=== PATIENT | male | born 1980 | race Two or more races ===

== ENCOUNTER 2024-02-13 16:10 | Inpatient (IN) | payer OTHER ==
[~2024-02-13] VITALS: Ht 185.4 cm; Wt 140.9 kg
[2024-02-13 16:19] VITALS: TEMP 98.7
[2024-02-13] MEDS: CloNIDine HCL 0.1 MG TABLET PO ONE (17:36)
[2024-02-13 17:40] LABS: BASOPHILS % (AUTO) 0.9 % (0.0-2.0); HEMATOCRIT 42.5 % (41-53); HEMOGLOBIN 13.6 g/dL (13.5-17.5); LYMPHOCYTES # (AUTO) 3.5 K/uL (1.0-4.8); LYMPHOCYTES % (AUTO) 32.1 % (22.0-44.0); MEAN CORPUSCULAR HEMOGLOBIN 28.9 pg (26.0-34.0); MEAN CORPUSCULAR HGB CONC 32.1 G/dL (31.0-37.0); MEAN CORPUSCULAR VOLUME 90 fL (80-100); NEUTROPHILS # (AUTO) 5.5 K/uL (1.8-7.7); PLATELET COUNT (AUTO) 270 K/uL (150-450); RED BLOOD CELL COUNT(AUTO) 4.71 MIL/uL (4.50-5.90); WHITE BLOOD COUNT (AUTO) 10.8 K/uL (4.5-11.0)
[2024-02-13] MEDS: AmLODIPine BESYLATE 10 MG TABLET PO ONE (17:48)
[2024-02-13 17:50] LABS: ANION GAP 12 mmol/L (8-16); CALCIUM, TOTAL 8.6 mg/dL (8.8-10.5); CARBON DIOXIDE 25 mmol/L (22-29); CHLORIDE 103 mmol/L (98-107); CREATININE 1.03 mg/dL (0.60-1.30); GLOMERULAR FILTR. RATE CALC > 60 mL/min (>60); GLUCOSE,RANDOM 121 mg/dL (70-110); POTASSIUM 3.5 mmol/L (3.5-5.1); SODIUM SERUM 140 mmol/L (136-145); UREA NITROGEN, BLOOD 14 mg/dL (7-18)
[2024-02-13 17:59] LABS: TROPONIN I-HIGH SENSITIVITY 27 ng/L (<76)
[2024-02-13] MEDS ORDERED: 0.9% SODIUM CHLORIDE 10 ML SYRINGE IVP PRN (19:00)
[2024-02-13 19:27] LABS: PROTHROMBIN TIME 10.1 SEC (9.4-11.6)
[2024-02-13] MEDS: LABETALOL HCL 5 MG/ML 20 ML VIAL IVP ONE ×2 (19:41→20:05)
[2024-02-13] MEDS: SODIUM CHLORIDE 0.9% 2,400 ML IV ONE (19:42)
[2024-02-13] MEDS: VANCOMYCIN 1GM/WATER(PEG/NADA) 200 ML IV ONE ×2 (19:48→20:39)
[2024-02-13] MEDS ORDERED: CloNIDine HCL 0.1 MG TABLET PO PRN (20:00)
[2024-02-13] MEDS ORDERED: MAGNESIUM HYDROXIDE SUSPENSION 30 ML UDCUP PO PRN (20:00)
[2024-02-13] MEDS ORDERED: ZOLPIDEM TARTRATE 5 MG TABLET PO PRN (20:00)
[2024-02-13] MEDS ORDERED: OxyCODONE HCL/ACETAMINOPHEN 5-325 MG TABLET PO PRN (20:00)
[2024-02-13] MEDS ORDERED: HydrALAZINE HCL 20 MG/ML VIAL IVP PRN (20:00)
[2024-02-13] MEDS ORDERED: ACETAMINOPHEN 325 MG TABLET PO PRN (20:00)
[2024-02-13 20:04] LABS: ALANINE AMINOTRANSFERASE 46 U/L (12-78); ALBUMIN 3.5 g/dL (3.4-5.0); ALKALINE PHOSPHATASE 67 U/L (46-116); ASPARTATE AMINOTRANSFERASE 31 U/L (15-37); BILIRUBIN,TOTAL 0.5 mg/dL (0.1-1.0); TOTAL PROTEIN, SERUM 7.9 g/dL (6.4-8.2)
[2024-02-13 20:08] LABS: LACTIC ACID 1.2 mmol/L (0.4-2.0)
[2024-02-13] MEDS: MORPHINE SULFATE 4 MG/ML SYRINGE IVP ONE (20:15)
[2024-02-13] MEDS: FAMOTIDINE 20 MG TABLET PO SCH (20:37)
[2024-02-13] MEDS: DOCUSATE SODIUM 100 MG CAPSULE PO SCH (20:37)
[2024-02-13] MEDS: LOSARTAN POTASSIUM 25 MG TABLET PO SCH (20:38)
[2024-02-13 20:40] VITALS: BP 132/89; PULSE 85; RESP 20; O2SAT 96
[2024-02-13] MEDS ORDERED: PERTUSS(ACELL),DIPH,TET/PF 0.5 ML SYRINGE [ADULT] IM. ONE (21:15)
[2024-02-13] MEDS ORDERED: DOXY-354 PO ×2 (21:26→23:20)
[2024-02-13] MEDS ORDERED: HYDR25TA2 PO ×2 (21:26→23:20)
[2024-02-13] MEDS ORDERED: AMLO-258 PO ×2 (21:26→23:20)
[2024-02-13] MEDS ORDERED: CEPH-558 PO ×2 (21:26→23:20)
[2024-02-13 21:38] LABS: APPEARANCE,URINE CLEAR (CLEAR); BILIRUBIN,URINE NEGATIVE (NEGATIVE); COLOR,URINE YELLOW (YELLOW); GLUCOSE, URINE (UA) NEGATIVE (NEGATIVE); KETONES,URINE NEGATIVE (NEGATIVE); LEUKOCYTE ESTERASE ,URINE NEGATIVE (NEGATIVE); NITRATE,URINE NEGATIVE (NEGATIVE); OCCULT BLOOD,URINE NEGATIVE (NEGATIVE); PROTEIN,URINE NEGATIVE (NEGATIVE); SPECIFIC GRAVITIY, URINE 1.017 (1.003-1.030); UROBILINOGEN,URINE <=1.0 mg/dL (<=1.0)
[2024-02-13 21:45] LABS: ALCOHOL, URINE DRUG SCREEN NEGATIVE (NEGATIVE); AMPHET/METH SCREEN,URINE POSITIVE (NEGATIVE); BARBITURATE SCREEN, URINE NEGATIVE (NEGATIVE); BENZODIAZEPINES SCREEN,URINE NEGATIVE (NEGATIVE); CANNABINOID SCREEN,URINE NEGATIVE (NEGATIVE); COCAINE SCREEN,URINE NEGATIVE (NEGATIVE); METHADONE SCREEN, URINE NEGATIVE (NEGATIVE); OPIATE SCREEN,URINE NEGATIVE (NEGATIVE); PHENCYCLIDINE SCREEN,URINE NEGATIVE (NEGATIVE)
[2024-02-14] MEDS ORDERED: HEPARIN SODIUM,PORCINE 5,000 UNITS/ML VIAL SQ SCH
[2024-02-14] MEDS ORDERED: VANCOMYCIN 1.75GM/WATER(PEG) 350 ML IV SCH (08:00)
== END 2024-02-13 21:39 | disposition left against medical advice (07) | DRG 872 ==
LOC: EMS 16:10 → EDH 20:00
PROVIDERS: ADMIT Internal Medicine; ATTEND Internal Medicine
DX: A41.9 Sepsis, unspecified organism (principal); L03.115 Cellulitis of right lower limb; I16.1 Hypertensive emergency; Z68.41 Body mass index [BMI] 40.0-44.9, adult; E66.01 Morbid (severe) obesity due to excess calories; E87.70 Fluid overload, unspecified; I11.9 Hypertensive heart disease without heart failure; Z53.29 Procedure and treatment not carried out because of patient's decision for other reasons; S90.414A Abrasion, right lesser toe(s), initial encounter; X58.XXXA Exposure to other specified factors, initial encounter; Y93.89 Activity, other specified; Y92.89 Other specified places as the place of occurrence of the external cause; Y99.8 Other external cause status
CPT/HCPCS: 71045; 80053; 80307; 81003; 83605; 84145; 84484; 85025; 85379; 85610; 87040; 93005; 93971; 99285; G0378; J2270; J3490; 36415-L1; 36415-TC